=== PATIENT | male | born 1990 | race Caucasian/White ===

== ENCOUNTER 2017-02-12 17:27 | Emergency (ER) | payer OTHER ==
[2017-02-12 17:38] VITALS: BP 140/78
[2017-02-12] MEDS ORDERED: KETOROLAC 60 MG/2 ML VIAL IM STA (18:18)
--- NOTE | 2017-02-12 18:20 | ED Physician Documentation ---
History of Present Illness - Stated complaint Stated Complaint: NECK PAIN - Chief complaint Chief Complaint: Heent - History obtained from History obtained from: Patient - History of Present Illness Timing: How many weeks ago (3) Pain level max: 6 Pain level now: 6 Improved by: rest Worsened by: movement - Additonal information Additional information: states neck pain for 3 weeks, States L side of neck. Worse with movement. better with rest. Hasn't taken anything for the pain or seen his PCM. States woke up with the pain and it is gradually worsened over the past 3 weeks. No fevers. No headaches. No neurological deficits. No vision changes. Review of Systems Ten Systems: 10 systems reviewed and negative Constitutional: denies: Fever, Chills Nose: denies: Rhinorrhea / runny nose, Congestion Throat: denies: Sore throat Cardiac: denies: Chest pain / pressure Respiratory: denies: Cough GI: denies: Abdominal Pain, Nausea, Vomiting, Diarrhea Skin: denies: Rash Musculoskeletal: denies: Back pain Neurologic: denies: Focal weakness, Numbness, Headache PD PAST MEDICAL HISTORY - Past Medical History Past Medical History: No - Past Surgical History Past Surgical History: Yes - Present Medications Home Medications: Ambulatory Orders Medication Instructions Recorded Confirmed Cyclobenzaprine [Flexeril] 10 mg PO TID PRN #20 tablet 02/12/17 Ibuprofen [Motrin] 800 mg PO Q8H PRN #30 tablet 02/12/17 - Allergies Allergies/Adverse Reactions: Allergies Allergy/AdvReac Type Severity Reaction Status Date / Time No Known Drug Allergies Allergy Verified 02/12/17 17:38 - Social History Does the pt smoke?: Yes Smoking Status: Current every day smoker Does the pt drink ETOH?: Yes Does the pt have substance abuse?: No - Immunizations Immunizations are current?: Yes PD ED PE NORMAL - Vitals Vital signs reviewed: Yes - General General: Alert and oriented X 3, No acute distress, Well developed/nourished - HEENT HEENT: Atraumatic, PERRL, Ears normal, Moist mucous membranes, Pharynx benign - Neck Neck: No bony TTP, No adenopathy, No JVD, No bruit, Other (spasm present L posterolateral aspect of the neck, FROM present but with some pain. no meningeal signs. no bony tenderness) - Cardiac Cardiac: RRR, No murmur - Respiratory Respiratory: No respiratory distress, Clear bilaterally - Derm Derm: Warm and dry - Neuro Neuro: Alert and oriented X 3, weighmaster lead 2-12 intact, No motor deficit, No sensory deficit, Normal speech Results - Vitals Vitals: Vital Signs - 24 hr 02/12/17 17:36 Temperature 36.5 C Heart Rate 86 Respiratory 16 Rate Blood Pressure 140/78 H O2 Saturation 98 Oxygen O2 Source Room air PD MEDICAL DECISION MAKING - ED course Complexity details: considered differential, d/w patient ED course: Patient is a otherwise healthy 26-year-old male who presents to the emergency department with left-sided neck pain for 3 weeks. Feels better after Toradol. Will place on Flexeril and Mobic for home. We will continue supportive care and follow-up with his doctor. He is well-appearing, nontoxic. Afebrile. No evidence of fracture, meningitis. No evidence of carotid dissection. Patient counseled regarding signs and symptoms for which I believe and urgent re- evaluation would be necessary. Patient with good understanding of and agreement to plan and is comfortable going home at this time This document was made in part using voice recognition software. While efforts are made to proofread this document, sound alike and grammatical errors may occur. Departure - Departure Disposition: 01 Home, Self Care Clinical Impression: Neck muscle spasm Condition: Good Instructions: ED Spasm Neck No Injury Follow-Up: your,doctor in 1 week [Other] Prescriptions: Cyclobenzaprine [Flexeril] 10 mg PO TID PRN #20 tablet PRN Reason: Spasms Ibuprofen [Motrin] 800 mg PO Q8H PRN #30 tablet PRN Reason: PAIN &/OR FEVER Comments: Do not drive or operate heavy machinery while taking the Flexeril. Continue to gently move your neck at home. Return if you worsen. Your blood pressure was elevated today on check in to the emergency department. This does not mean that you have hypertension, it is a common phenomenon to check into the emergency department and have elevated blood pressure. I recommend that you see your primary care physician within the week to have it rechecked when you're feeling better. Discharge Date/Time: 02/12/17 18:30
[2017-02-12] MEDS ORDERED: KETOROLAC 60 MG/2 ML VIAL ONE (18:25)
== END 2017-02-12 18:30 | disposition home or self-care (01) ==
LOC: ED 17:27
DX: M62.838 Other muscle spasm (principal); F17.200 Nicotine dependence, unspecified, uncomplicated
CPT/HCPCS: 96372; 99282; 99283

== ENCOUNTER 2017-06-30 14:38 | Outpatient (CLI) | payer OTHER ==
--- NOTE | 2017-06-30 16:10 | MRI Report ---
EXAM: LEFT KNEE MRI WITHOUT CONTRAST EXAM DATE: 06/30/2017 03:43 PM. CLINICAL HISTORY: Chronic left knee pain. COMPARISON: None. TECHNIQUE: Multiplanar, multisequence T1-weighted and fluid-sensitive sequences of the knee without c ontrast. Other: None. FINDINGS: Bones: Metallic artifact at the anterior tibial tubercle, postop. No fractures. No marrow edema is no chely.. 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 Tiny subchondral cystic changes. Medial Meniscus: The medial meniscus is intact. Lateral Meniscus: The lateral meniscus is intact. Cruciate Ligaments: The anterior and posterior cruciate ligaments are intact. Collateral Ligaments: The medial collateral and lateral collateral ligamentous structures are intact. Tendons: The quadriceps, patellar, semimembranosus, and popliteus tendons are unremarkable. Musculature: No edema or fatty atrophy. Other: No effusion. No popliteal cyst. No loose bodies. The medial and lateral retinacula are intact . The subcutaneous tissues and fat pads are unremarkable. IMPRESSION: 1. Metallic artifact at the anterior tubercle is present, postop change. No fractures. No marrow chanel a is identified. 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 2. Menisci, cruciates, and collaterals are normal. 3. No edema or fatty atrophy of the surrounding muscles. No joint effusion or popliteal cyst. No loos e bodies. [facility] MUSCULOSKELET[facility]IOLOGY SECTION Referring Provider Line: [phone] SITE ID: [id number]
== END 2017-06-30 14:39 | disposition home or self-care (01) ==
LOC: DI 14:38
PROVIDERS: ATTEND Orthopaedic Surgery
DX: M22.42 Chondromalacia patellae, left knee (principal)

== ENCOUNTER 2018-06-29 08:57 | Outpatient (CLI) | payer OTHER | END 2018-06-29 08:58 | disposition home or self-care (01) | LOC: SC 08:57 | PROVIDERS: ATTEND Internal Medicine Pulmonary Disease | DX: G47.10 Hypersomnia, unspecified (principal); R51 Headache; R41.89 Other symptoms and signs involving cognitive functions and awareness; R06.83 Snoring; G47.8 Other sleep disorders; G47.21 Circadian rhythm sleep disorder, delayed sleep phase type; G25.81 Restless legs syndrome | CPT/HCPCS: 99204; 99212 ==

== ENCOUNTER 2018-07-21 20:13 | Outpatient (CLI) | payer OTHER | END 2018-07-21 20:14 | disposition home or self-care (01) | LOC: SC 20:13 | PROVIDERS: ATTEND Internal Medicine Pulmonary Disease | DX: R06.83 Snoring (principal); G47.61 Periodic limb movement disorder | CPT/HCPCS: 95810 ==

== ENCOUNTER 2018-08-18 12:45 | Outpatient (CLI) | payer OTHER | END 2018-08-18 12:46 | disposition home or self-care (01) | LOC: SC 12:45 | PROVIDERS: ATTEND Nurse Practitioner Family | DX: R06.83 Snoring (principal); G47.61 Periodic limb movement disorder | CPT/HCPCS: 99212; 99214 ==